=== PATIENT | male | born 1980 | race Two or more races ===

== ENCOUNTER → 2021-02-22 | Outpatient (CLI) | payer OTHER | END | disposition home or self-care (01) | LOC: PPH VACUNA 08:00 | PROVIDERS: ATTEND Emergency Medicine Pediatric Emergency Medicine | DX: Z23 Encounter for immunization (principal) ==

== ENCOUNTER 2023-07-15 10:33 | Emergency (ER) | payer OTHER ==
[~2023-07-15] VITALS: Ht 175.3 cm; Wt 106.1 kg
[2023-07-15] MEDS ORDERED: LIPITOR20 MG PO (11:16)
[2023-07-15] MEDS ORDERED: KETOROLAC TROMETHAMINE 30 MG VIAL IM STA (12:07)
[2023-07-15] MEDS ORDERED: CEFTRIAXONE SODIUM 1,000 MG VIAL IM STA (12:07)
== END 2023-07-15 12:34 | disposition home or self-care (01) ==
LOC: ER 10:33
DX: L60.0 Ingrowing nail (principal)